=== PATIENT | female | born 1940 | race Caucasian/White ===

== ENCOUNTER → 2018-09-28 | Outpatient (CLI) | payer MEDICARE ==
[~2018-09-28] MED LIST: ALENDRONATE SOD70 MG PO; ATENOLOL25 MG PO; CALCIUM PO; DULERA 100 MCG/13 GM INH; EC MATRIXX TAB1 EACH PO; GABAPENTIN100 MG PO; MAGNESIUM250 M1 PO; MIRALAX17 GM PO; MONTELUKAST SOD10 MG PO; OMEGA 3-6-9 CO400 MG PO; THORAZINE25 MG PO; VIT D PO; Z.0.AMBIEN10 MG PO; Z.0.ATENOLOL50 MG PO; Z.0.LISINOPRIL10 MG PO; Z.0.PRILOSEC20 MG PO
--- NOTE | 2018-09-28 16:12 | Diagnostic Imaging Report ---
EXAM: CT Chest without contrast INDICATION: History of right-sided lung nodule, right upper quadrant abdominal pain. COMPARISON: None TECHNIQUE: Chest was scanned utilizing a multidetector helical scanner from the lung apex through the level of the adrenal glands without administration of IV contrast. Coronal and sagittal reformations were obtained. Routine protocol was performed. Lack of IV contrast limits evaluation of visceral and vascular structures. RADIATION DOSE: Total DLP: 359.6 mGy*cm Dose modulation, iterative reconstruction, and/or weight based adjustment of the mA/kV was utilized to reduce the radiation dose to as low as reasonably achievable. COMPLICATIONS: None FINDINGS: LINES/ TUBES: None. LUNGS AND AIRWAYS: The central airways are patent. Scattered dependent linear subsegmental atelectasis. There is a 4 mm solid nodule in the right upper lobe on series 3, image 25. There is a 3 mm calcified granuloma in the right middle lobe on image 73. Mild peripheral reticular opacities in the right greater than left lower lobes, which may reflect early fibrotic changes. PLEURA: The pleural spaces are clear. HEART AND MEDIASTINUM: The thyroid gland is not well evaluated. Mildly prominent fat-containing right paratracheal lymph node, measuring up to 1.2 cm short axis, likely reactive. No cardiomegaly or pericardial effusion. Scattered mild atherosclerotic calcifications of the thoracic aorta. UPPER ABDOMEN: Limited non-contrast views of the upper abdomen. Status post cholecystectomy. Subcentimeter hypodensity within the left upper pole kidney, too small to characterize, but likely representing a cyst. Postsurgical changes of the stomach. Moderate hiatal hernia. BONES: Diffuse osteopenia. No acute osseous abnormality. No suspicious lytic or blastic lesions. SOFT TISSUES: Unremarkable. IMPRESSION: A 4 mm right upper lobe solid pulmonary nodule. Comparison with prior study would be helpful for further evaluation. If no prior studies are available, in the absence of high risk for malignancy, no further follow-up is required. If there is a risk factor for malignancy such as smoking, an optional follow-up chest CT may be considered in 12 months. Signed by: Dr. Ghazal Dominguez MD on 09/28/2018 4:09 PM
--- NOTE | 2018-09-29 17:08 | Diagnostic Imaging Report ---
MRCP CPT code: 61282 History: Right upper quadrant pain Comparison: CT abdomen/pelvis 01/12/2017. Technique: Multiplanar, multisequence images of the abdomen were obtained per MRCP protocol. 3D volume rendered reformation images of the biliary tree were performed. No intravenous gadolinium was administered. Findings: There is trace intrahepatic biliary ductal dilatation without evidence of beading or narrowing. The common hepatic duct measures 4 mm. The cystic duct remnant is visible and is normal in morphology. The proximal common bile duct measures 9 mm. The mid common bile duct measures 6 mm. The distal common bile duct measures 5 mm with squaring of the shoulders as approaches the ampulla. No intraluminal filling defects. The pancreas duct is normal in morphology throughout its course. No dilatation. The gallbladder is absent. Liver: Normal signal. No mass Spleen: Normal size and signal. No mass Pancreas: Mild fatty atrophy. No mass or ductal dilatation Kidneys: There are multiple cysts in the right kidney. A lobulated cyst measures 3.3 cm and is located in the lateral interpolar cortex. There are tiny cysts in the left kidney. No hydronephrosis. Adrenal glands: No evidence for mass. Lymph nodes: No evidence of lymphadenopathy. Vasculature: Normal in morphology. Bowel: Stable postoperative changes of the stomach with small to moderate-sized hiatal hernia. The visualized portions of the small bowel and large bowel are normal in diameter with normal wall thickness. Pelvis: Visualized pelvic organs are unremarkable. Peritoneum/retroperitoneum: No free fluid or fluid collection. Lung bases: Stable eventration of the left diaphragm. Lung bases are clear. Bones: Stable S-shaped scoliosis of the thoracolumbar spine. There is a perineural cyst in the thoracic spine to the left of midline. Normal marrow signal. No focal osseous lesions. IMPRESSION: 1. Status post cholecystectomy. Mild distention of the central intrahepatic ducts and the common bile duct without evidence of choledocholithiasis. This may be a combination of reservoir effect and ampullary stricture. Normal pancreas duct. 2. Small to moderate-sized hiatal hernia. Stable postoperative changes of the stomach. 3. Bilateral renal cysts as described above. Thank you for your referral. Signed by: Dr. Niya Yee MD on 09/29/2018 5:04 PM
== END ==
LOC: MRI 13:31
PROVIDERS: ATTEND Internal Medicine Gastroenterology
DX: R10.11 Right upper quadrant pain (principal); R91.1 Solitary pulmonary nodule
CPT/HCPCS: 71250; 74181

== ENCOUNTER → 2018-10-09 | Day surgery (SDC) | payer MEDICARE ==
[~2018-10-09] MED LIST changes: +FENTANYL CITRATE/PF 100MCG/2 ML INJ ONE; +GLUCAGON FOR INJ 1 MG VIAL ONE; +HYOSCYAMINE SULFATE 0.5 MG/ML INJ ONE; +PROPOFOL IV EMULSION 10 MG/ML 50 ML VIAL ONE
--- OUTSIDE RECORDS SUMMARY | 2018-10-09 05:44 | XMS REPORT ---
Author Author [facility] Address Unknown Phone Unavailable Care Team Providers Care Assistant Family Teacher Name Role Phone PROMISE DOWNEY Unavailable Unavailable BANDHAKAVI SUBHADRA Unavailable Unavailable Problems This patient has no known problems. Allergies, Adverse Reactions, Alerts This patient has no known allergies or adverse reactions. Medications This patient has no known medications. Results Test Description Test Time Test Comments Text Results Atomic Results Result Comments MRI MRCP WO 2018-09-29 16:55:00 [place] [address] Patient Name: RUBIN ROSARIO MR #: [id number] : 1940 Age/Sex: 78/F Req #: [id number] Adm Physician: Ordered by: PROMISE DOWNEY MD Report #: [id number] Location: MRI Room/Bed: Procedure: [id number] MRI/MRI MRCP WO Exam Date: Exam Time: REPORT STATUS: Signed MRCP CPT code: 26615 History: Right upper quadrant pain Comparison: CT abdomen/pelvis 01/12/2017. Technique: Multiplanar, multisequence images of the abdomen were obtained per MRCP protocol. 3D volume rendered reformation images of the biliary tree were performed. No intravenous gadolinium was administered. Findings: There is trace intrahepatic biliary ductal dilatation without evidence of beading or narrowing. The common hepatic duct measures 4 mm. The cystic duct remnant is visible and is normal in morphology. The proximal common bile duct measures 9 mm. The mid common bile duct measures 6 mm. The distal common bile duct arabella ures 5 mm with squaring of the shoulders as approaches the ampulla. No intraluminal filling defects. The pancreas duct is normal in morphology throughout its course. No dilatation. The gallbladder is absent. Liver: Normal signal. No mass Spleen: Normal size and signal. No mass Pancreas: Mild fatty atrophy. No mass or ductal dilatation Kidneys: There are multiple cysts in the right kidney. A lobulated cyst measures 3.3 cm and is located in the lateral interpolar cortex. There are tiny cysts in the left kidney. No hydronephrosis. Adrenal glands: No evidence for mass. Lymph nodes: No evidence of lymphadenopathy. Vasculature: Normal in morphology. Bowel: Stable postoperative changes of the stomach with small to moderate-sized hiatal hernia. The visualized portions of the small bowel and large bowel are normal in diameter with normal wall thickness. Pelvis: Visualized pelvic organs are unremarkable. Peritoneum/retroperitone um: No free fluid or fluid collection. Lung bases: Stable eventration of the left diaphragm. Lung bases are clear. Bones: Stable S-shaped scoliosis of the thoracolumbar spine. There is a perineural cyst in the thoracic spine to the left of midline. Normal marrow signal. No focal osseous lesions. IMPRESSION: 1. Status post cholecystectomy. Mild distention of the central intrahepatic ducts and the common bile duct without evidence of choledocholithiasis. This may be a combination of reservoir effect and ampullary stricture. Normal pancreas duct. 2. Small to moderate-sized hiatal hernia. Stable postoperative changes of the stomach. 3. Bilateral renal cysts as described above. Thank you for your referral. Signed by: Dr. Elaine Yee MD on 09/29/2018 5:04 PM Dictated By: ELAINE YEE MD 03 Transcribed By: BLANCO on 09/29/181703 COPY TO: PROMISE DOWNEY MD CT CHEST WO 2018-09-28 15:57:00 [place] [address] Patient Name: RUBIN ROSARIO MR #: [id number] : 1940 Age/Sex: 78/F Req #: [id number] [facility] Physician: Ordered by: JOSELYN LOPEZ MD Report #: [id number] Location: MRI Room/Bed: Procedure: CT/CT CHEST WO Exam Date: 09/28/18 Exam Time: 1420 REPORT STATUS: Signed EXAM: CT Chest without contrast INDICATION: History of right-sided lung nodule, right upper quadrant abdominal pain. COMPARISON: None TECHNIQUE: Chest was scanned utilizing a multidetector helical scanner from the lung apex through the level of the adrenal glands without administration of IV contrast. Coronal and sagittal reformations were obtained. Routine protocol was performed. Lack of IV contrast limits evaluation of visceral and vascular structures. RADIATION DOSE: Total DLP: 359.6 mGy*cm Dose modulation, iterative reconstruction, and/or weight based adjustment of the mA/kV was utilized to reduce the radiation dose to as low as reasonably achievable. COMPLICATIONS: None FINDINGS: LINES/ TUBES: None. LUNGS AND AIRWAYS: The central airways are patent. Scattered dependent linear subsegmental atelectasis. There is a 4 mm solid nodule in the right upper lobe on series 3, image 25. There is a 3 mm calcified granuloma in the right middle lobe on image 73. Mild peripheral reticular opacities in the right greater than left lower lobes, which may reflect early fibrotic changes. PLEURA: The pleural spaces are clear. HEART AND MEDIASTINUM: The thyroid gland is not well evaluated. Mildly prominent fat-containing right paratracheal lymph node, measuring up to 1.2 cm short axis, likely reactive. No cardiomegaly or pericardial effusion. Scattered mild atherosclerotic calcifications of the thoracic aorta. UPPER ABDOMEN: Limited non-contrast views of the upper abdomen. Status post cholecystectomy. Subcentimeter hypodensity within the left upper pole kidney, too small to characterize, but likely representing a cyst. Postsurgical changes of the stomach. Moderate hiatal hernia. BONES: Diffuse osteopenia. No acute osseous abnormality. No suspicious lytic or blastic lesions. SOFT TISSUES: Unremarkable. IMPRESSION: A 4 mm right upper lobe solid pulmonary nodule. Comparison with prior study would be helpful for further evaluation. If no prior studies are available, in the absence of high risk for malignancy, no further follow-up is required. If there is a risk factor for malignancy such as smoking, an optional follow-up chest CT may be considered in 12 months. Signed by: Dr. Nita Wills MD on 09/28/2018 4:09 PM Dictated By: NITA WILLS MD 1601 Transcribed By: BLANCO on 09/28/18 1600 COPY TO: JOSELYN LOPEZ MD CT ABDOMEN/PELVIS WO [place] [address] Patient Name: RUBIN ROSARIO MR #: [id number] : 1940 Age/Sex: 76/F Req #: [id number] Adm Physician: Ordered by: JOSELYN LOPEZ MD Report #: [id number] Location: CT Room/Bed: Procedure: [id number] CT/CT ABDOMEN/PELVIS WO Exam Date: 01/12/17 Exam Time: 1210 REPORT STATUS: Signed PROCEDURE: CT ABDOMEN AND PELVIS WITHOUT CONTRAST TECHNIQUE: The abdomen and pelvis were scanned utilizing a multidetector helical scanner from the diaphragm to the lesser trochanter. No oral or intravenous contrast was administered per referring physician request. Coronal and sagittal multiplanar reformations were obtained. COMPARISON: 08/10/2011. INDICATIONS: DIARRHEA FINDINGS: ABSENCE OF INTRAVENOUS CONTRAST DECREASES SENSITIVITY FOR DETECTION OF FOCAL LESIONS AND VASCULAR PATHOLOGY. LOWER THORAX: Linear fibrotic changes in the lung bases, left greater than right. 3 mm nodule in the anterior segment of the right lower lobe seen on series 2 image 4. HEPATOBILIARY: No focal hepatic lesions. No biliary ductal dilatation. The gallbladder has been removed. SPLEEN: Calcified splenic granuloma. No splenomegaly. PANCREAS: No focal masses or ductal dilatation. ADRENALS: No adrenal nodules. KIDNEYS/URETERS: 3.2 cm exophytic low attenuation lesion projecting from the right kidney, average internal attenuation 10-15 Hounsfield units, compatible with a simple cyst, unchanged compared to prior examination. Additional subcentimeter hypoattenuating lesion projecting from the upper pole of the left kidney is too small to further characterize though likely represent an additional small cyst. A similar lesion is noted projecting from the right lower pole. No hydronephrosis. No renal, ureteral, or bladder calculi. PELVIC ORGANS/BLADDER: The urinary bladder is unremarkable. Uterus is neutral in position and appears normal. No adnexal mass. PERITONEUM / RETROPERITONEUM: No free air or fluid. LYMPH NODES: No pelvic sidewall, retroperitoneal, or mesenteric lymphadenopathy. VESSELS: Limited evaluation without intravenous contrast. The abdominal aorta is non-aneurysmal. Minimal atherosclerotic calcification. Retroaortic left renal vein. GI TRACT: The large bowel shows no evidence of distention or wall thickening. There are a few diverticula scattered along the sigmoid colon without evidence of diverticulitis. The appendix is not definitively identified. No right lower quadrant inflammatory changes. Postsurgical changes of the proximal stomach likely related to fundoplication. A small diverticulum arises from the third portion of the duodenum. No small bowel dilatation to suggest obstruction. BONES AND SOFT TISSUES: No focal soft tissue abnormalities. No osseous destructive lesions. IMPRESSION: No acute intra-abdominal or pelvic CT abnormalities. Minimal sigmoid diverticulosis without evidence of diverticulitis. Postsurgical changes of the gastroesophageal junction compatible with fundoplication. 3 mm right lower lobe pulmonary nodule may be assessed for stability by CT scan of the chest in one year if the patient is at increased risk of malignancy per Fleishner society 2017 guidelines. Dictated by: Grayson Jung M.D. on 01/12/2017 at 13:43 Electronically approved by: Grayson Jung M.D. on 01/12/2017 at 13:43 Dictated By: GRAYSON JUNG MD 1343 Transcribed By: KOFFI on 01/12/17 1343 COPY TO: JOSELYN LOPEZ MD
--- OUTSIDE RECORDS SUMMARY | 2018-10-09 05:44 | XMS REPORT | Summary of Care ---
Author Author ROBERTO Cruz, JERROD Organization Unknown Address Unknown Phone Unavailable Care Team Providers Care Head Animal Trainer Name Role Phone JERROD MEJIA M.D. Unavailable Unavailable JOSELYN LOPEZ MD Unavailable Unavailable Functional Status Name Dates Details Functional status health issues are not documented Status: Name Dates Details Cognitive status health issues are not documented Status: Problems Name Dates Details Aftercare following surgery (V58.89, Z48.89) Status: Active Back pain, acute (724.5, M54.9) Status: Active Medications Name Dates Details Calcium-Vitamin D TABS Active Ganado-3 1000 MG Oral Capsule * Refills: 0 Active Neurontin 100 MG Oral Capsule * Refills: 0 Active Singulair 10 MG Oral Tablet * Refills: 0 Active Astepro 0.15 % Nasal Solution * Refills: 0 Active Baclofen 10 MG Oral Tablet * Refills: 0 Active Lisinopril 10 MG Oral Tablet * Refills: 0 Active Atenolol 50 MG Oral Tablet * Refills: 0 Active traZODone HCl - 50 MG Oral Tablet * Refills: 0 Active Allergies and Adverse Reactions Name Dates Details Penicillins (Allergy) Status: Active Past Medical History Name Dates Details History of asthma (V12.69, Z87.09) Status: Resolved History of atrial tachycardia (V12.59, Z86.79) Status: Resolved History of Dysphagia (787.20, R13.10) Status: Resolved History of Epigastric pain (789.06, R10.13) Status: Resolved History of hiatal hernia (V12.79, Z87.19) Status: Resolved History of IBS (V12.79, Z87.19) Status: Resolved History of Regurgitation (R11.10) Status: Resolved Procedures Procedure Dates Details XRAY Chest 2 views [id number] Date: 19-Jul-2018 History of Cholecystectomy Completed History of Phuong fundoplication laparoscopic Completed History of Tubal ligation Completed History of Appendectomy Completed History of Esophagogastric fundoplasty Completed Immunization Name Dates Details Immunizations not documented Family History Name Dates Details Family history of malignant neoplasm (V16.9, Z80.9) Status: Active Social History Name Dates Details - Status: Name Dates Details Never smoker Vital Signs Date Test Result Details [id number] BP Systolic 112 mm[Hg] Status: Comments: Location: RUE; Position: Sitting BP Diastolic 74 mm[Hg] Status: Comments: Location: RUE; Position: Sitting Height 65 in Status: Weight 125.25 lb Status: Body Mass Index Calculated 20.84 kg/m2 Status: Body Surface Area Calculated 1.62 m2 Status: Temperature 98.5 f Status: Comments: Method: Oral Heart Rate 69 /min Status: Comments: Quality: Normal Respiration Rate 16 /min Status: Comments: Quality: Normal O2 SAT 98 % Status: Comments: Source: RA Results Date Description Value Details Results not documented Plan of Care Name Dates Details Planned Observations Planned Goals not documented Interventions Provided Labs/Procedures/Imaging* XRAY Chest 2 views [id number]; To Be Done: 19 Jul 2018 Plan* She is under going a CT of her back that was ordered by her PCP to evaluate the left back pain and her known pulmonary nodule. * I will see her again as needed. Instructions Name Dates Details Instructions not documented Encounters Appointment; JERROD MEJIA M.D. Encounter Diagnosis: Problem not documented On: 25-Aug-2016 13:30 Appointment; JERROD MEJIA M.D. Encounter Diagnosis: Problem not documented On: 08-Oct-2016 13:00 Appointment; JERROD MEJIA M.D. Encounter Diagnosis: Problem not documented On: 10-Nov-2016 13:00 Appointment; JERROD MEJIA M.D. Encounter Diagnosis: Problem not documented On: 03-Aug-2017 14:30 Appointment; JERROD MEJIA M.D. Encounter Diagnosis: Problem not documented On: 19-Jul-2018 11:00
[2018-10-09 09:35] VITALS: BP 121/78
--- NOTE | 2018-10-09 11:15 | Operative Report ---
DATE OF PROCEDURE: 10/09/2018 SURGEON: Boni Dupont MD PROCEDURES: 1. Esophagogastroduodenoscopy with biopsies. 2. Colonoscopy with biopsies. INDICATION FOR EGD: Upper abdominal pain. INDICATIONS FOR COLONOSCOPY: Surveillance colonoscopy, personal history of colon polyps, intermittent diarrhea. MEDICATIONS: The patient was done under MAC, please see anesthesiologist's note. PROCEDURE IN DETAIL: With the patient in left lateral decubitus position, a flexible fiberoptic Olympus gastroscope was introduced into the esophagus under direct visualization without any difficulty. Single erosion was noted in the distal esophagus. There was some patchy erythema also noted. The scope was then advanced with ease into the stomach and the mucosa overlying the antrum revealed some atrophic changes and biopsies were obtained to rule out atrophic gastritis. Pylorus was of normal contour and shape, it was intubated with ease and the scope was advanced all the way to the second portion of the duodenum. The scope was then withdrawn slowly and mucosa overlying the second portion and the bulb grossly appeared to be within normal limits. Biopsies were obtained to rule out sprue. The scope was then withdrawn back into the stomach and retroflexed and the patient appeared to be status post fundoplication and the fundoplication was intact. The scope was then straightened out, it was subsequently withdrawn. The patient tolerated the procedure well. IMPRESSION: 1. Erosive esophagitis. 2. Intact fundoplication. 3. Rule out atrophic gastritis, antrum. 4. Rule out sprue. PLAN: Follow up histology. Initiate Protonix 40 mg one p.o. q.a.m. a.c. The patient was then turned around. After adequate lubrication of the anal canal, a flexible fiberoptic Olympus colonoscope was inserted into the rectum with ease and advanced all the way to the cecum. Mucosa overlying the cecum appeared to be within normal limits. Approximately 1.5 cm polypoid lesion suspicious for a lipoma, was noted in the proximal ascending colon just above the cecum and that was biopsied. Mucosa overlying the rest of the ascending, transverse, descending, and sigmoid other than for some minimal diverticulosis appeared to be within normal limits. The scope was then retroflexed into the distal rectum and small internal hemorrhoids were noted, none of which was actively bleeding. The scope was then straightened out, it was subsequently withdrawn. The patient tolerated the procedure well. IMPRESSION: 1. Rule out lipoma, ascending colon. 2. Diverticulosis. 3. Internal hemorrhoids, none actively bleeding. PLAN: Follow up histology. Initiate high-fiber, low-fat diet. Initiate high-fiber supplement. Timing of followup colonoscopy, pending pathology report. Boni Dupont MD [facility] [place] /[id number] cc: Magy Quinn MD
== END | disposition home or self-care (01) ==
LOC: OR 05:37
PROVIDERS: ATTEND Internal Medicine Gastroenterology
DX: Z12.11 Encounter for screening for malignant neoplasm of colon (principal); K29.50 Unspecified chronic gastritis without bleeding; K44.9 Diaphragmatic hernia without obstruction or gangrene; Z86.010 Personal history of colon polyps; R11.2 Nausea with vomiting, unspecified; R19.7 Diarrhea, unspecified; K20.9 Esophagitis, unspecified; Z88.5 Allergy status to narcotic agent; Z88.0 Allergy status to penicillin; J45.909 Unspecified asthma, uncomplicated; Z01.810 Encounter for preprocedural cardiovascular examination; R10.10 Upper abdominal pain, unspecified; K57.30 Diverticulosis of large intestine without perforation or abscess without bleeding; K64.8 Other hemorrhoids
CPT/HCPCS: 43239; 45380; 88305; 88312; 93005; J1610; J1980; J2704; 45378

== ENCOUNTER → 2018-12-18 | Outpatient (CLI) | payer MEDICARE ==
[~2018-12-18] MED LIST changes: -FENTANYL CITRATE/PF 100MCG/2 ML INJ ONE; -GLUCAGON FOR INJ 1 MG VIAL ONE; -HYOSCYAMINE SULFATE 0.5 MG/ML INJ ONE; -PROPOFOL IV EMULSION 10 MG/ML 50 ML VIAL ONE
--- NOTE | 2018-12-18 16:20 | Diagnostic Imaging Report ---
Exam: Left shoulder 3 views Clinical History: Arthritis Findings: There is no evidence of acute fracture or malalignment. The articular joints are well-preserved. The soft tissue is unremarkable. Impression: No radiographic evidence of acute osseous injury. Signed by: Dr. Brock Yi MD on 12/18/2018 4:16 PM
--- NOTE | 2018-12-18 16:26 | Diagnostic Imaging Report ---
Exam: Thoracic spine series Clinical history: Pain Findings: There is no evidence of acute fracture. Mild scoliosis of the thoracic spine is noted. There is elevation the left hemidiaphragm with moderate distended air-filled bowel loops in the left upper quadrant. The soft tissue is unremarkable. Impression: 1. No radiographic evidence of acute osseous injury. Mild scoliosis noted. Signed by: Dr. Brock Yi MD on 12/18/2018 4:21 PM
== END ==
LOC: RAD 15:10
PROVIDERS: ATTEND Internal Medicine
DX: M54.6 Pain in thoracic spine (principal); M41.84 Other forms of scoliosis, thoracic region; M25.512 Pain in left shoulder; M62.830 Muscle spasm of back; M79.10 Myalgia, unspecified site
CPT/HCPCS: 72072